=== PATIENT | female | born 1955 | race Two or more races ===

== ENCOUNTER 2017-02-08 15:20 | Emergency (ER) | payer OTHER ==
[~2017-02-08] VITALS: Ht 152.4 cm; Wt 59.9 kg
--- NOTE | 2017-02-08 15:27 | NUR ---
Pt bib self, cc: sob since last night, dizziness, headache. VSS. Awaiting md order.
--- NOTE | 2017-02-08 16:07 | NUR ---
LAC #18 PIV ACCESS. BLOOD SAMPLE COLLECTED SENT TO LAB
[2017-02-08 16:10] LABS: BASOPHILS % (AUTO) 0.5 % (0.0-2.0); EOSINOPHILS # (AUTO) 0.1 /CMM (0.0-0.7); EOSINOPHILS % (AUTO) 1.6 % (0.0-6.0); HEMATOCRIT 42 % (33-45); HEMOGLOBIN 13.7 g/dL (11.5-14.8); LYMPHOCYTES # (AUTO) 3.1 /CMM (0.8-4.8); LYMPHOCYTES % (AUTO) 41.4 % (20.0-44.0); MEAN CORPUSCULAR HEMOGLOBIN 30 PG (26.0-33.0); MEAN CORPUSCULAR HGB CONC 33 g/dl (31.0-36.0); MEAN CORPUSCULAR VOLUME 90 fL (82-100); MONOCYTES # (AUTO) 0.6 /CMM (0.1-1.30); MONOCYTES % (AUTO) 7.4 % (2.0-12.0); NEUTROPHILS # (AUTO) 3.7 /CMM (1.8-8.9); NEUTROPHILS % (AUTO) 49.1 % (43.0-81.0); PLATELET COUNT (AUTO) 378 /CMM (150-450); RDW COEFFICIENT OF VARIATION 12.2 (11.5-15.0); RED BLOOD CELL COUNT(AUTO) 4.64 MIL/uL (4.0-5.2); WHITE BLOOD COUNT (AUTO) 7.5 K/uL (4.3-11.0)
[2017-02-08 16:20] LABS: CARBON DIOXIDE 31 mmol/L (21-32); CHLORIDE 106 mmol/L (98-107); CREATININE 0.7 mg/dL (0.6-1.3); GFR 85 mL/min (>60); GLUCOSE 107 mg/dL (74-106); POTASSIUM 3.8 mmol/L (3.5-5.1); SODIUM SERUM 142 mmol/L (136-145); UREA NITROGEN, BLOOD 15 mg/dL (7-18)
[2017-02-08 16:24] LABS: INR 1.08 (0.87-1.13); PROTHROMBIN TIME 11.2 SECS (9.5-12.7)
[2017-02-08 16:29] LABS: TROPONIN I < 0.017 ng/mL (0.00-0.056)
--- NOTE | 2017-02-08 17:26 | NUR ---
Patient discharged to home in stable condition. Written and verbal after care instructions given. Patient verbalizes understanding of instruction.
--- NOTE | 2017-02-08 17:26 | NUR ---
IV removed. Catheter intact and site benign. Pressure and 4x4 applied to site. No bleeding noted.
[2017-02-08 17:27] VITALS: BP 166/93
== END 2017-02-08 17:28 | disposition home or self-care (01) ==
LOC: ER 15:22
DX: J06.9 Acute upper respiratory infection, unspecified (principal); K21.9 Gastro-esophageal reflux disease without esophagitis; R06.02 Shortness of breath
CPT/HCPCS: 36415; 71010; 80048; 83880; 84484; 85025; 85730; 93005; 99285; A4606; Z7610

== ENCOUNTER 2021-09-25 17:27 | Emergency (ER) | payer MEDICARE, OTHER ==
[~2021-09-25] VITALS: Ht 149.9 cm; Wt 60.3 kg
[2021-09-25 17:40] VITALS: BP 174/81
--- NOTE | 2021-09-25 17:47 | NUR ---
AT BEDSIDE FOR EVAL.
[2021-09-25] MEDS ORDERED: DICL50TA7 PO (17:55)
[2021-09-25] MEDS ORDERED: CARI350T PO ×2 (17:56)
--- NOTE | 2021-09-25 18:16 | NUR ---
Patient discharged to home in stable condition. Written and verbal after care instructions given. Patient verbalizes understanding of instruction.
== END 2021-09-25 18:17 | disposition home or self-care (01) ==
LOC: ER 17:40
DX: M54.6 Pain in thoracic spine (principal); K21.9 Gastro-esophageal reflux disease without esophagitis; Z98.890 Other specified postprocedural states; Z79.899 Other long term (current) drug therapy

== ENCOUNTER 2022-09-19 22:10 | Emergency (ER) | payer MEDICARE, OTHER ==
[~2022-09-19] VITALS: Ht 149.9 cm; Wt 61.2 kg
[~2022-09-19 22:10] MED LIST: CARI350T PO; DICL50TA7 PO
[2022-09-19 23:11] VITALS: BP 147/80
[2022-09-19] MEDS ORDERED: HYDR-3972 PO (23:25)
[2022-09-19] MEDS ORDERED: HYDROCODONE/APAP 5/325MG TABLET ONE (23:26)
[2022-09-19] MEDS: HYDROCODONE/APAP 5/325MG TABLET PO ONE (23:30)
== END 2022-09-19 23:32 | disposition home or self-care (01) ==
LOC: ER 22:43
DX: R10.32 Left lower quadrant pain (principal); K57.32 Diverticulitis of large intestine without perforation or abscess without bleeding; K21.9 Gastro-esophageal reflux disease without esophagitis; Z88.2 Allergy status to sulfonamides; Z79.899 Other long term (current) drug therapy

== ENCOUNTER 2024-06-26 15:46 | Emergency (ER) | payer OTHER, MEDICAID ==
[~2024-06-26] VITALS: Ht 160 cm; Wt 65.8 kg
[~2024-06-26 15:46] MED LIST changes: +HYDR-3972 PO
[2024-06-26 15:55] VITALS: TEMP 98.3
[2024-06-26] MEDS: IV NS 0.9% 1,000 ML BAG IV ONE (16:50)
[2024-06-26 17:24] LABS: BILIRUBIN,DIRECT 0.1 mg/dL (0.0-0.2); BILIRUBIN,TOTAL 0.3 mg/dL (0.2-1.0); CREATININE 1.9 mg/dL (0.6-1.3); POTASSIUM 3.9 mmol/L (3.5-5.1); TOTAL PROTEIN, SERUM 6.7 g/dL (6.4-8.2)
[2024-06-26 17:42] LABS: APPEARANCE,URINE CLEAR (CLEAR); BILIRUBIN,URINE NEGATIVE (NEGATIVE); BLOOD, URINE 1+ Ery/uL (NEGATIVE); COLOR,URINE YELLOW (YELLOW); KETONES,URINE NEGATIVE (NEGATIVE); LEUKOCYTE ESTERASE ,URINE NEGATIVE (NEGATIVE); NITRITE, URINE NEGATIVE (NEGATIVE); PROTEIN,URINE NEGATIVE (NEGATIVE); UGLUCOSE NEGATIVE (NEGATIVE); UROBILINOGEN,URINE 0.2 EU/dL (0.2)
[2024-06-26 17:51] LABS: BASOPHILS % (AUTO) 0.3 % (0.0-2.0); EOSINOPHILS # (AUTO) 0.1 K/uL (0.0-0.7); EOSINOPHILS % (AUTO) 0.7 % (0.0-6.0); HEMATOCRIT 37 % (33-45); HEMOGLOBIN 12.2 g/dL (11.5-14.8); LYMPHOCYTES # (AUTO) 1.9 K/uL (0.8-4.8); LYMPHOCYTES % (AUTO) 22.6 % (20.0-44.0); MEAN CORPUSCULAR HEMOGLOBIN 30 PG (26.0-33.0); MEAN CORPUSCULAR HGB CONC 33 g/dl (31.0-36.0); MEAN CORPUSCULAR VOLUME 91 fL (82-100); MONOCYTES # (AUTO) 0.8 K/uL (0.1-1.30); MONOCYTES % (AUTO) 9.6 % (2.0-12.0); NEUTROPHILS # (AUTO) 5.6 K/uL (1.8-8.9); NEUTROPHILS % (AUTO) 66.8 % (43.0-81.0); PLATELET COUNT (AUTO) 286 K/uL (150-450); RED BLOOD CELL COUNT(AUTO) 4.05 MIL/uL (4.0-5.2); RED CELL DISTRIBUTION WIDTH 13.3 % (11.5-15.0); WHITE BLOOD COUNT (AUTO) 8.3 K/uL (4.3-11.0)
[2024-06-26 17:53] LABS: ADD URINE CULTURE NO; BACTERIA,URINE None seen /HPF (None Seen); WBC,URINE 0-2 /HPF (0-3)
[2024-06-26] MEDS ORDERED: CIPROFLOXACIN IV RTU 200 ML IV ONE (21:08)
[2024-06-26] MEDS ORDERED: METRONIDAZOLE 500MG/ NS 100ML 100 ML IV ONE (21:08)
[2024-06-26] MEDS: CIPROFLOXACIN IV RTU 400 MG in PREMIX 1 EA IV SCH (21:20)
[2024-06-26] MEDS: METRONIDAZOLE 500MG/ NS 100ML 500 MG in PREMIX 1 EA IV SCH (21:20)
[2024-06-26 21:47] VITALS: BP 125/65; O2SAT 99
== END 2024-06-26 23:56 | disposition short-term general hospital (02) ==
LOC: ER 16:07
DX: K57.92 Diverticulitis of intestine, part unspecified, without perforation or abscess without bleeding (principal); I10 Essential (primary) hypertension; Z88.2 Allergy status to sulfonamides; Z20.822 Contact with and (suspected) exposure to COVID-19
CPT/HCPCS: 99285; 74176; 96365; 96361; 87426; 85025; 80048; 87086; 83690; 80076; 81001; 36415; J7030; A4216 ×2; J0744 ×2

== ENCOUNTER 2025-09-27 20:01 | Emergency (ER) | payer BC, MEDICAID ==
[~2025-09-27] VITALS: Ht 152.4 cm; Wt 61.2 kg
[2025-09-27] MEDS: KETOROLAC TROMETHAMINE INJ 30 MG/ML VIAL IM ONE (22:30)
[2025-09-27] MEDS ORDERED: KETOROLAC TROMETHAMINE INJ 30 MG/ML VIAL ONE (23:15)
[2025-09-28 01:10] VITALS: BP 145/78; TEMP 98.1; O2SAT 96
== END 2025-09-28 01:11 | disposition home or self-care (01) ==
LOC: ER 20:06
DX: M19.011 Primary osteoarthritis, right shoulder (principal); M79.18 Myalgia, other site; M43.17 Spondylolisthesis, lumbosacral region; E78.00 Pure hypercholesterolemia, unspecified; E11.9 Type 2 diabetes mellitus without complications; I10 Essential (primary) hypertension; M47.816 Spondylosis without myelopathy or radiculopathy, lumbar region; Z88.2 Allergy status to sulfonamides; Z98.890 Other specified postprocedural states
CPT/HCPCS: 99285; 72131; 96372; 73030; J1885